=== PATIENT | female | born 1930 | race Caucasian/White ===

== ENCOUNTER 2018-05-14 07:22 | Emergency (ER) | payer MEDICARE, OTHER ==
[2018-05-14] MEDS ORDERED: cloNIDine 0.1 MG TAB ONE (07:56)
[2018-05-14 08:01] LABS: #Eosinphils 0.2 thou/uL (0.0-0.7); #Lymphocytes 2.4 thou/uL (1.20-3.40); #Monocytes 0.8 thou/uL (0.11-0.59); #Neutrophils 4.4 thou/uL (1.40-6.50); %Basophils 0.3 % (0.0-1.0); %Eosinophils 2.9 % (0.0-10.0); %Lymphocytes 30.6 % (21.0-51.0); %Monocytes 10.1 % (0.0-10.0); %Neutrophils 56.1 % (42.0-75.0); Hemoglobin 13.6 g/dL (12.0-16.0); Mean Corpuscular HGB CONC 32.8 g/dL (32.0-36.0); Mean Corpuscular Hemoglobin 30.4 pg (27.0-31.0); Mean Corpuscular Volume 92.7 fL (78.0-98.0); Mean Platelet Volume 8.1 fL (7.4-10.4); Platelet Count 229 thou/uL (130-400); Red Blood Cell (RBC) Count 4.48 mill/uL (4.20-5.40); White Blood Cell (WBC) Count 7.8 thou/uL (4.8-10.8)
[2018-05-14 08:21] LABS: ALT (SGPT) 19 U/L (8-55); AST (SGOT) 23 U/L (5-34); Albumin 4.2 g/dL (3.4-4.8); Alkaline Phosphatase 111 U/L (40-150); Anion Gap 13 mmol/L (10-20); BUN (Urea Nitrogen) 17 mg/dL (9.8-20.1); Bilirubin, Total 0.8 mg/dL (0.2-1.2); Calc. Creatinine Clearance 0 mL/min (70-130); Calcium 9.3 mg/dL (7.8-10.44); Carbon Dioxide 26 mmol/L (23-31); Chloride 106 mmol/L (98-107); Estimated GFR-MDRD 68; Globulin 3.7 g/dL (2.4-3.5); Glucose 121 mg/dL (83-110); Potassium 3.8 mmol/L (3.5-5.1); Protein, Total 7.9 g/dL (6.0-8.3); Sodium 141 mmol/L (136-145)
== END 2018-05-14 09:18 | disposition home or self-care (01) ==
LOC: ERS 07:22
DX: I10 Essential (primary) hypertension (principal); E11.9 Type 2 diabetes mellitus without complications; Z79.899 Other long term (current) drug therapy
CPT/HCPCS: 80053; 84484; 85025; 93005

== ENCOUNTER 2018-06-15 13:29 | Outpatient (CLI) | payer MEDICARE, OTHER ==
[~2018-06-15 13:29] MED LIST: Iopamidol 370 76% 100 ML VIAL ONE
--- NOTE | 2018-06-15 16:06 | CT ---
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 Bladder cancer. COMPARISON: 08/16/2012. TECHNIQUE: Brain CT is performed with and without contrast. FINDINGS: No parenchyma hemorrhage. No extraaxial hematoma. No midline shift. Basilar cisterns are patent. Brain volume, age appropriate. Cortical hicks-white matter differentiation is preserved. Ventricles and sulci are patent and symmetric. Stable hyperdensity in the left deep hicks matter structures compatible with calcification. Calvarium is intact. Adequate aeration os the sinuses and mastoid air cells. Cavernous carotid athe rosclerosis is noted. No pathologic enhancement of the brain parenchyma. IMPRESSION: Unremarkable pre- and postcontrast head CT. POS: HERNANDO
== END 2018-06-15 13:30 | disposition home or self-care (01) ==
LOC: BICCT 13:29
PROVIDERS: ATTEND Psychiatry & Neurology Neurology
DX: F03.90 Unspecified dementia, unspecified severity, without behavioral disturbance, psychotic disturbance, mood disturbance, and anxiety (principal)
CPT/HCPCS: 70470; Q9967

== ENCOUNTER 2018-10-26 13:01 | Observation (INO) | payer MEDICARE, OTHER ==
[2018-10-26 13:36] LABS: #Basophils 0.1 thou/uL (0.0-0.2); #Eosinphils 0.2 thou/uL (0.0-0.7); #Lymphocytes 1.9 thou/uL (1.20-3.40); #Monocytes 1.2 thou/uL (0.11-0.59); #Neutrophils 5.6 thou/uL (1.40-6.50); %Basophils 0.6 % (0.0-1.0); %Eosinophils 2.3 % (0.0-10.0); %Lymphocytes 21.5 % (21.0-51.0); %Monocytes 13.1 % (0.0-10.0); %Neutrophils 62.6 % (42.0-75.0); Mean Corpuscular HGB CONC 32.7 g/dL (32.0-36.0); Mean Corpuscular Hemoglobin 30.7 pg (27.0-31.0); Mean Corpuscular Volume 93.8 fL (78.0-98.0); Mean Platelet Volume 7.5 fL (7.4-10.4); Platelet Count 216 thou/uL (130-400); RBC Distribution Width 11.3 % (11.5-14.5); Red Blood Cell (RBC) Count 3.91 mill/uL (4.20-5.40); White Blood Cell (WBC) Count 8.9 thou/uL (4.8-10.8)
[2018-10-26 13:57] LABS: ALT (SGPT) 19 U/L (8-55); AST (SGOT) 22 U/L (5-34); Albumin 3.9 g/dL (3.4-4.8); Alkaline Phosphatase 94 U/L (40-150); Anion Gap 14 mmol/L (10-20); BUN (Urea Nitrogen) 21 mg/dL (9.8-20.1); Bilirubin, Total 0.5 mg/dL (0.2-1.2); Calc. Creatinine Clearance 0 mL/min (70-130); Calcium 8.7 mg/dL (7.8-10.44); Carbon Dioxide 24 mmol/L (23-31); Chloride 106 mmol/L (98-107); Estimated GFR-MDRD 72; Glucose 108 mg/dL (83-110); Protein, Total 6.9 g/dL (6.0-8.3); Sodium 140 mmol/L (136-145)
[2018-10-26 14:17] LABS: CKMB 2.3 ng/mL (0-6.6)
--- NOTE | 2018-10-26 14:49 | RAD ---
PORTABLE CHEST 1 VIEW: DATE: 10/26/2018. TIME: 2:12 p.m. HISTORY: Weakness and nausea. FINDINGS: Comparison is made with the exam of 08/19/2012. The heart size is borderline. Left-sided pacing device remains in place. The lungs are expanded wit hout lobar consolidation, pneumothoraces, dmitri pulmonary edema, or pleural effusions. There are deg enerative changes in the spine. There are postop changes of right rotator cuff repair. IMPRESSION: No acute process. POS: OFF
[2018-10-26] MEDS ORDERED: Aspirin 325 MG TAB ONE (15:02)
[2018-10-26] MEDS ORDERED: Ondansetron PF 4 MG/2 ML Vial IVP PRN (17:11)
[2018-10-26 18:23] VITALS: BMI 30.4
[2018-10-26] MEDS ORDERED: Meclizine HCl 25 MG TAB PO PRN (18:39)
[2018-10-26 19:21] LABS: Troponin I 0.074 ng/mL (< 0.028)
[2018-10-26] MEDS ORDERED: Metoprolol Tartrate 25 MG TAB PO SCH (21:15)
[2018-10-26] MEDS: Sodium Chloride 0.9% 1,000 ML IV SCH (21:23)
[2018-10-26] MEDS: Gabapentin 300 MG CAP PO PRN (21:25)
[2018-10-26 21:28] LABS: Troponin I 0.088 ng/mL (< 0.028)
--- NOTE | 2018-10-27 00:13 | HP ---
CHIEF COMPLAINT: Near syncope and dizziness. HISTORY OF PRESENT ILLNESS: The patient is a pleasant 88-year-old female with past medical history significant for hypertension, currently untreated, history of sick sinus syndrome, status post permanent pacemaker implanted in 2012, and hypothyroidism, who presented to the emergency room with complaints of dizziness and near syncope that occurred this morning. The patient states that she was in her usual state of health when she woke up this morning. She went outside in her yard to trim and water her sal. She then began to do some work in her larger yard where she was treating her fire ant beds. She was outside working for several hours. When she came inside, the patient states that she was "dripping wet." Her clothes and her hair were soaked through. She then decided to take a shower. After showering, the patient states that she felt very dizzy and lightheaded, and as if she would pass out. She did not have any dmitri syncope. She did have some associated nausea. She had no chest pain and no shortness of breath. She was able to press her home medical alert button and EMS brought her to the emergency room for further workup and treatment. On arrival to our ER, the patient was significantly hypertensive with systolic reading in the 190s. Her initial troponin was 0.054. Otherwise, her lab work was largely unremarkable. The patient was given IV fluids, and at the time of my interview, her symptoms have completely resolved. As mentioned, she has denied any cardiac symptoms of chest pain, shortness of breath, or palpitations. The patient is followed by Dr. Lam. He saw her about two weeks ago, and prescribed metoprolol succinate for hypertension. The patient has tried numerous antihypertensives in the past, and has had apparent reactions to all of them. She decided not to take the metoprolol succinate, which was prescribed because she did not want to take a long-acting medication. REVIEW OF SYSTEMS: A 12-point review of systems performed and is negative except that stated above. The patient has had no recent flu-like symptoms, illnesses, or sick contacts. No diarrhea or cough. ALLERGIES: CODEINE, EGG WHITES, HYDRALAZINE, AND THE PATIENT STATES THAT SHE HAS HAD SENSITIVITIES TO NUMEROUS ANTIHYPERTENSIVES IN THE PAST WELL STATIN MEDICATIONS. HOME MEDICATIONS: 1. Clonidine 0.1 mg one tablet orally as needed for blood pressure greater than 180. 2. Synthroid 88 mcg daily. 3. Neurontin 300 mg one tablet q.p.m. 4. Topical/vaginal estrogen 1 application q.2 weeks. SOCIAL HISTORY: The patient lives at home independently. She does use a walker. She has no history of tobacco abuse, illicit drug use, or alcohol use. FAMILY HISTORY: Noncontributory. PAST MEDICAL HISTORY: Hypothyroidism; hypertension; prediabetes; restless legs syndrome, treated by Dr. Melgoza; history of bladder cancer, status post tumor resection; hyperlipidemia. PAST SURGICAL HISTORY: Right rotator cuff repair, bladder tumor resection, appendectomy, hysterectomy. PHYSICAL EXAMINATION: VITAL SIGNS: Blood pressure 185/86, pulse 76, respirations 18, and O2 saturation is 97% on room air. GENERAL: This is a well-appearing elderly female who actually appears younger than her stated age of 88. HEENT: Head is atraumatic and normocephalic. Mucous membranes are moist. NECK: No lymphadenopathy. Trachea is midline. No carotid bruits. CV: S1 and S2. Regular rate and rhythm. No appreciable murmurs, rubs, or gallops. LUNGS: Regular respiratory rate and pattern. Clear to auscultation bilaterally. ABDOMEN: Positive bowel sounds. Soft, nontender. EXTREMITIES: No edema. Positive for some varicose veins in her feet, +2 DP pulses bilaterally. SKIN: Warm and dry. No rashes. NEUROLOGIC: Cranial nerves 2 through 12 are intact. The patient is nonfocal. LABORATORY DATA: Hemoglobin 12, hematocrit 36.6, platelet count is 216. Sodium 140, potassium 4.0, creatinine is 0.76, BUN 21. AST, ALT, alkaline phosphatase all within normal limits. Troponin 0.054. ASSESSMENT: 1. Near syncope, likely secondary to mild heat exhaustion. 2. Accelerated hypertension on arrival. 3. Demand ischemia, questionably secondary to accelerated hypertension versus near syncopal episode. 4. Hypertension, currently untreated, with history of multiple drug sensitivities in the past. 5. Sick sinus syndrome, status post pacemaker implant in 2012. 6. Hypothyroidism. 7. Restless legs syndrome. 8. Prediabetes with most recent hemoglobin A1c 6.1%. PLAN: We will obtain orthostatic vitals as well as continue gentle IV hydration. The patient's presenting symptoms have resolved and she has had no chest pain or shortness of breath. We will continue to trend troponin. Regarding her blood pressure, the patient is willing to take metoprolol tartrate versus metoprolol succinate and will start low-dose metoprolol tonight. The patient states that she does follow with Dr. Lam regularly. She is not interested in any stress test at this time and she says that she had a reaction to the administered medication. As mentioned, we will go ahead and trend troponin. If she remains asymptomatic, expect discharge tomorrow. Job ID: [id number]
[2018-10-27 05:47] LABS: Anion Gap 13 mmol/L (10-20); BUN (Urea Nitrogen) 17 mg/dL (9.8-20.1); Calc. Creatinine Clearance 62 mL/min (70-130); Calcium 8.3 mg/dL (7.8-10.44); Carbon Dioxide 21 mmol/L (23-31); Chloride 110 mmol/L (98-107); Estimated GFR-MDRD 78; Glucose 90 mg/dL (83-110); Potassium 4.1 mmol/L (3.5-5.1); Sodium 140 mmol/L (136-145)
[2018-10-27] MEDS: Levothyroxine Sodium 88 MCG TAB PO SCH (08:09)
[2018-10-27] MEDS: Sodium Chloride 0.9% 1,000 ML IV SCH ×2 (08:14→15:24)
[2018-10-27] MEDS: Aspirin 81 mg Enteric Coated Tablet PO SCH (08:59)
[2018-10-27] MEDS: Metoprolol Tartrate 25 MG TAB PO SCH ×3 (10:03→17:59)
[2018-10-27] MEDS: cloNIDine 0.1 MG TAB PO PRN ×2 (15:20→19:55)
[2018-10-27 16:05] LABS: Troponin I 0.065 ng/mL (< 0.028)
[2018-10-27] MEDS ORDERED: Labetalol HCl 100 MG/20 ML VIAL SLOW IVP PRN (17:19)
--- NOTE | 2018-10-27 17:50 | PDOC.PN ---
- Subjective Encounter Start Date: 10/27/18 Encounter Start Time: 15:00 - Objective Vital Signs & Weight: Vital Signs (12 hours) Temp Pulse Pulse Resp BP BP Pulse Ox 10/27/18 16:26 98.3 F 75 16 192/82 H 92 L 10/27/18 14:55 76 226/95 H 10/27/18 11:11 98.0 F 72 20 175/76 H 93 L 10/27/18 11:00 98.0 F 72 20 175/75 H 93 L 10/27/18 07:07 98.1 F 72 20 170/72 H 92 L Weight Weight 70.76 kg I&O: 10/26/18 10/27/18 10/28/18 06:59 06:59 06:59 Intake Total 240 Output Total 175 Balance 65 Result Diagrams: 10/26/18 13:23 10/27/18 04:40 Additional Labs: Accuchecks 10/27/18 10/27/18 10/26/18 17:13 11:16 20:46 POC Glucose 117 H 103 129 H Dx/Plan - Plan * .
[2018-10-27] MEDS: Gabapentin 300 MG CAP PO PRN (21:51)
--- NOTE | 2018-10-28 02:05 | CON ---
DATE OF CONSULTATION: HISTORY OF PRESENT ILLNESS: Atiya Dorman is an 88-year-old white female who I have seen intermittently since May 1994. In 1994, complained of 2 years of chest discomfort described as burning in the central part of her chest that would radiate up into her throat, neck, and jaw. This would last for 3 to 4 seconds up to 30 minutes. Ultimately, she underwent treadmill testing and had [address]- segment depression in multiple leads. She underwent cardiac catheterization, which revealed a 30% mid LAD lesion. She had normal left ventricular function. The night after cardiac catheterization, she had an episode of supraventricular tachycardia with a rate of 160 per minute, which was short-lived and spontaneously resolved. She was placed on Calan 180. She then had an episode of SVT which required adenosine 6 mg and 12 mg in the emergency room to convert. Calan was increased to 240 daily. Her episodes of SVT seem to correlate with the chest discomfort. Ultimately, she was placed on digoxin alone, which appeared to control her SVT over the years. In May 1995, she underwent laminectomy and 4 times while in the hospital during the postoperative course, she had tachycardia. One episode lasting 4 hours. In May 2004, she had a negative dobutamine echo test with no evidence of ischemia. In July 2011, she underwent a Lexiscan Cardiolite testing, which revealed no evidence of ischemia. In August 2012, she was admitted with an episode of syncope. At 4:30 in the morning, she was at home sitting on the bedside commode and everything became black and she fell forward. Apparently, she hit the wall with her head and states that it caused a hole in the wall. She did not remember the time from becoming very dizzy and her vision going black on the commode until she hit the wall. She activated her Life Alert bracelet, was brought to the emergency room. Blood pressure was 193/72 at that point. She was given meclizine with some improvement in her symptoms. Her blood pressure when she was in the hospital was difficult to control. She also had an episode at 10 a.m. in the morning where she again became very dizzy and lightheaded. On the monitor, she had 2:1 AV block with heart rates in the 30s. Digoxin level was obtained and this was 0.8. She then underwent pacemaker placement without incident and was discharged. She continues to be intermittently seen in the office. She has had blood pressures that has been difficult to control and she has been noncompliant with multiple medications. When she was last seen on July, she was placed on metoprolol ER 25 mg q.a.m. for a blood pressure of 220/ 100. She apparently did not take that. She now is admitted after working outside for 2 hours watering plants. She states that she was soaking wet when she came in, took a shower, and then felt extremely weak, called Paramedics, and she was brought to the hospital. Again, her blood pressure has been difficult to control. She denies any palpitations or chest discomfort. She has no shortness of breath. PAST MEDICAL HISTORY: Hypertension; hypercholesterolemia, which has been under good control with Praluent; hypothyroidism; bladder cancer, status post resection. PAST SURGICAL HISTORY: Resection of bladder cancer, back surgery, hysterectomy, appendectomy, pacemaker insertion, bladder suspension surgery, right shoulder surgery, and tonsillectomy. MEDICATIONS: 1. Gabapentin 300 mg b.i.d. p.r.n. 2. Levothyroxine 88 mcg daily. 3. Meclizine 25 mg b.i.d. p.r.n. 4. She also is supposed to be on metoprolol ER 25 q.a.m., but did not take that. 5. Praluent 150 q.2 weeks. ALLERGIES: CODEINE, EGG, HYDRALAZINE, IBUPROFEN, CORTISONE, FLU SHOT, MYCIN, AND DYE ALLERGY. SOCIAL HISTORY: She does not smoke or drink. She lives alone. 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 FAMILY HISTORY: Her father had some type of "genetic" coronary artery disease. The brother and sister also apparently had the same type of problem with angina and myocardial infarction at age 50. REVIEW OF SYSTEMS: A 12-point review of systems is otherwise unremarkable. PHYSICAL EXAMINATION: VITAL SIGNS: 190/82, pulse 75. HEENT: PERRL. NECK: Supple. CHEST: Clear. CARDIAC: S1 and S2 are normal without any S3, S4, or murmurs. ABDOMEN: Normal bowel sounds without tenderness, organomegaly. EXTREMITIES: Revealed no clubbing, cyanosis, or edema. NEUROLOGIC: Grossly intact. SKIN: Warm and dry. LABORATORY DATA: EKG revealed normal sinus rhythm, nonspecific ST and T-wave changes. Pacemaker was interrogated. She is 100% V-sensed. She A-paces 19.1% of the time. She has had no significant arrhythmias. Hemoglobin 12.0, hematocrit 36.6, white count 8900, platelets 216,000. Sodium 140, potassium 4.1, chloride 110, carbon dioxide 21, BUN 17, creatinine 0.71. Troponin I is 0.088. In July 2018, cholesterol is 127, triglycerides 104, HDL 51, LDL 55 on Praluent. IMPRESSION: 1. History is most compatible with heat exhaustion. We discussed the need to stay out of heat. 2. Hypertension with the patient being noncompliant with many medications. She also was on olmesartan 20 daily; however, she stopped taking that. 3. Demand ischemia. 4. Status post pacemaker placement in 2012 after a syncopal episode. 5. Hypothyroidism. 6. Prediabetes. 7. Hypercholesterolemia-good control with Praluent. PLAN: I do not feel any further cardiac evaluation is warranted. It will be very difficult to control her blood pressure with her being noncompliant with multiple medications. This has been an ongoing problem for many, many years. Job ID: [id number] [facility]ITAL[facility]
[2018-10-28] MEDS: Levothyroxine Sodium 88 MCG TAB PO SCH (05:17)
[2018-10-28] MEDS: Aspirin 81 mg Enteric Coated Tablet PO SCH (08:04)
[2018-10-28] MEDS: Metoprolol Tartrate 25 MG TAB PO SCH (08:04)
[2018-10-28 08:09] VITALS: BP 171/77; TEMP 97.8
--- NOTE | 2018-10-28 11:20 | EKG ---
Test Reason : Blood Pressure : / mmHG Vent. Rate : 082 BPM Atrial Rate : 082 BPM P-R Int : 182 ms QRS Dur : 092 ms QT Int : 388 ms P-R-T Axes : 073 069 017 degrees QTc Int : 453 ms Normal sinus rhythm Abnormal ECG Confirmed by LETTY BAY DO ([id number]), science editor HERIBERTO GERMAN ([id number] on 10/28/2018 11:20:13 AM Referred By: Confirmed By:LETTY BAY DO
== END 2018-10-28 10:27 | disposition home or self-care (01) ==
LOC: ERS 13:01 → 2SW 17:10
PROVIDERS: ADMIT Internal Medicine; ATTEND Internal Medicine
DX: T67.5XXA Heat exhaustion, unspecified, initial encounter (principal); I10 Essential (primary) hypertension; I24.8 Other forms of acute ischemic heart disease; I49.5 Sick sinus syndrome; E03.9 Hypothyroidism, unspecified; G25.81 Restless legs syndrome; E78.00 Pure hypercholesterolemia, unspecified; R73.03 Prediabetes; Z85.51 Personal history of malignant neoplasm of bladder; Z95.0 Presence of cardiac pacemaker; Z88.5 Allergy status to narcotic agent; Z91.012 Allergy to eggs; Z88.8 Allergy status to other drugs, medicaments and biological substances; Z88.6 Allergy status to analgesic agent; Z88.7 Allergy status to serum and vaccine; Z91.041 Radiographic dye allergy status; Z79.899 Other long term (current) drug therapy
CPT/HCPCS: 71045; 80048; 80053; 82550; 82553; 82962 ×2; 84484 ×3; 85025; 93005; 96360; 96361 ×2; 99285; G0378; 36415; 36416

== ENCOUNTER 2019-11-26 11:57 | Emergency (ER) | payer MEDICARE, OTHER ==
[2019-11-26] MEDS ORDERED: Ketorolac Tromethamine 30 MG/ML VIAL ONE (12:34)
--- NOTE | 2019-11-26 13:08 | RAD ---
LEFT HAND 3 VIEWS: Date: 11/26/2019 HISTORY: Thumb pain. FINDINGS: Mild degenerative changes at the first carpometacarpal joint. Mild narrowing and minimal degenerative changes at the MCP joints. Mild DJD at the IP joints with mild dorsal spurring at the DIP joints. No erosive change. No fracture, dislocation, or acute abnormality. IMPRESSION: Degenerative changes as described. POS: AH
--- NOTE | 2019-11-26 13:09 | RAD ---
RIGHT SHOULDER 2 VIEWS: Date: 11/26/2019 HISTORY: Fall with injury. FINDINGS: There is a displaced fracture through the humeral head and neck with possible comminution. There is d isplacement of the humeral head. There appears to be mild anterior subluxation without overt dislocat ion. AC joint is normally aligned. IMPRESSION: Displaced fracture through the anatomic neck of the humerus with displacement of the humeral head. Ev idence of mild comminution. Mild subluxation of the humeral head without overt dislocation. POS: AH
== END 2019-11-26 15:06 | disposition home or self-care (01) ==
LOC: ERS 11:57
DX: S42.291A Other displaced fracture of upper end of right humerus, initial encounter for closed fracture (principal); S63.602A Unspecified sprain of left thumb, initial encounter; E11.9 Type 2 diabetes mellitus without complications; I10 Essential (primary) hypertension; Z79.899 Other long term (current) drug therapy; W01.0XXA Fall on same level from slipping, tripping and stumbling without subsequent striking against object, initial encounter
CPT/HCPCS: 96372; J1885